=== PATIENT | male | born 1965 | race Caucasian/White ===

== ENCOUNTER 2023-10-22 11:01 | Emergency (ER) | payer BC, OTHER ==
[2023-10-22 11:20] VITALS: RESP 18; BMI 31.7
[2023-10-22] MEDS: SODIUM CHLORIDE 1,000 ML IV STA (12:58)
[2023-10-22 13:01] LABS: BASO % 0.4 % (0-2.0); EOS % 0.6 % (0-4.5); HEMATOCRIT 42.5 % (35.4-49); HEMOGLOBIN 14.6 GM/dL (11.7-16.9); LYMPH % 30.8 % (8-40); MCH 31.3 pg (25.7-33.7); MCHC 34.3 g/dl (32.0-35.9); MEAN CELL VOLUME 91.4 fl (80-96); MEAN PLT VOLUME 8.9 fl (7.5-11.1); MONO % 4.8 % (3.8-10.2); NEUT % 63.4 % (42.8-82.8); PLATELET COUNT 190 10^3/uL (134-434); RBC 4.65 M/mm3 (4.00-5.60); RDW 13.6 % (11.9-15.9)
[2023-10-22 13:08] LABS: INR 0.95 (0.83-1.09); PROTHROMBIN TIME (PATIENT) 10.7 SEC (9.7-13.0)
[2023-10-22 13:18] LABS: POTASSIUM 4.5 mmol/L (3.5-5.1)
[2023-10-22 13:20] LABS: CALCIUM 9.4 mg/dL (8.5-10.1)
[2023-10-22 13:21] LABS: ALBUMIN 3.8 g/dl (3.4-5.0); BLOOD UREA NITROGEN 12.4 mg/dL (7-18)
[2023-10-22 13:24] LABS: CREATININE 0.9 mg/dL (0.55-1.3)
[2023-10-22 13:25] LABS: TOT PROT 7.3 g/dl (6.4-8.2)
[2023-10-22 13:26] LABS: BILIRUBIN,TOTAL 0.7 mg/dL (0.2-1)
[2023-10-22 14:34] LABS: URINE APPEARANCE CLEAR; URINE BILIRUBIN NEGATIVE (NEGATIVE); URINE COLOR YELLOW; URINE GLUCOSE (UA) NEGATIVE (NEGATIVE); URINE KETONE NEGATIVE (NEGATIVE); URINE LEUK ESTERASE NEGATIVE (NEGATIVE); URINE NITRITE NEGATIVE (NEGATIVE); URINE PROTEIN NEGATIVE (NEGATIVE); URINE UROBILINOGEN 0.2 mg/dL (0.2-1.0)
[2023-10-22 14:42] VITALS: BP 168/91; PULSE 73; TEMP 97.9
[2023-10-22] MEDS ORDERED: AMOX TR/POT CLAV 875MG/125MG TABLETS (FP) ONE (15:32)
[2023-10-22] MEDS: AMOX TR/POT CLAV 875MG/125MG TABLETS (FP) PO ONE (15:34)
== END 2023-10-22 15:42 | disposition home or self-care (01) ==
LOC: JER 11:01
PROC: 3E0337Z Introduction of Electrolytic and Water Balance Substance into Peripheral Vein, Percutaneous Approach (ICD-10-PCS; principal; 2023-10-22)
DX: R10.32 Left lower quadrant pain (principal); K57.92 Diverticulitis of intestine, part unspecified, without perforation or abscess without bleeding
CPT/HCPCS: 36415; 74177-TC; 80053; 81003; 83690; 85025; 85610; 86850; 86900; 86901; 99285-25; Q9967